=== PATIENT | male | born 1995 | race Caucasian/White ===

== ENCOUNTER 2017-11-08 05:46 | Observation (INO) | payer OTHER ==
[~2017-11-08] VITALS: Ht 188 cm; Wt 98.9 kg
[~2017-11-08 05:46] MED LIST: ALBU90OI INH; AZIT250 PO; PRED20 PO; QUET300 PO
[2017-11-08 06:12] LABS: BASOPHILS ABSOLUTE AUTO 0.03 K/mm3 (0.00-0.23); BASOPHILS PERCENT AUTO 0 % (0-2); EOSINOPHILS ABSOLUTE AUTO 0.13 K/mm3 (0.00-0.68); EOSINOPHILS PERCENT AUTO 2 % (0-6); Hematocrit 40.8 % (37.0-53.0); Hemoglobin 14.1 g/dL (13.5-17.5); IMMATURE GRAN ABSOLUTE AUTO 0.02 K/mm3 (0.00-0.10); IMMATURE GRAN PERCENT AUTO 0 % (0-1); LYMPHOCYTES ABSOLUTE AUTO 2.76 K/mm3 (0.84-5.20); LYMPHOCYTES PERCENT AUTO 35 % (21-46); MONOCYTES PERCENT AUTO 9 % (4-13); Mean Corpuscular HGB 30.3 pg (26.0-34.0); Mean Corpuscular HGB Conc 34.6 g/dL (31.5-36.5); Mean Corpuscular Volume 88 fL (80-100); Mean Platelet Volume 9.7 fL (9.1-12.4); NEUTROPHILS ABSOLUTE AUTO 4.28 K/mm3 (1.96-9.15); NEUTROPHILS PERCENT AUTO 54 % (41-73); Platelet Count 282 K/mm3 (150-400); RDW Coefficient Variation 12.5 % (11.7-14.2); RDW Standard Deviation 39.9 fL (35.1-46.3); Red Blood Cell Count 4.65 M/mm3 (4.30-5.90); White Blood Cell Count 7.92 K/mm3 (4.00-11.30)
[2017-11-08 06:39] LABS: Alanine Aminotransfer (ALT/SGP 25 U/L (12-78); Albumin, Blood 4.2 g/dL (3.4-5.0); Albumin/Globulin Ratio 1.2 (0.8-1.8); Alk Phos 67 U/L (50-136); Anion Gap 8 mmol/L (6-16); Aspartate Aminotrans (AST/SGOT 14 U/L (12-37); Bilirubin, Total 0.6 mg/dL (0.1-1.0); Blood Urea Nitrogen 11 mg/dL (8-24); Bun/Creatinine Ratio 12.8 (12.0-20.0); CO2, Blood 25 mmol/L (21-32); Calcium, Blood 8.6 mg/dL (8.5-10.1); Chloride, Blood 106 mmol/L (98-108); Creatinine, Blood 0.86 mg/dL (0.60-1.20); Ethanol (Alcohol), Blood, Med <3 mg/dL; Globulin, Blood 3.5 g/dL (2.2-4.0); Glomerular Filtration Rate >60 (60-); Glucose, Blood 89 mg/dL (70-99); Potassium, Blood 3.4 mmol/L (3.5-5.5); Salicylate <1.7 mg/dL (2.8-20.0); Sodium, Blood 139 mmol/L (136-145); Total Protein, Blood 7.7 g/dL (6.4-8.2)
[2017-11-08 06:50] LABS: Acetaminophen, Random <2.0 ug/mL (10.0-30.0)
[2017-11-09 11:47] LABS: Source, Urine Clean Catch
[2017-11-09 11:52] LABS: Bilirubin, Urine Neg (Neg); Blood, Urine Neg (Neg); Glucose Qualitative, Urine Neg (Neg); Ketones, Urine Neg (Neg); Leukocyte Esterase, Urine Neg (Neg); Nitrite, Urine Neg (Neg); Protein, Urine Neg (Neg); Urobilinogen, Urine NORM (Normal)
[2017-11-09 11:54] LABS: Appearance, Urine Clear (Clear); Color, Urine Yellow (P-Yellow)
[2017-11-09 12:12] LABS: U Amphetamine Screen Not Detected; U Barbituate Screen Not Detected; U Benzodiazapine Screen DETECTED; U Buprenorphine Screen Not Detected; U Cannabinoids Screen DETECTED; U Cocaine Screen Not Detected; U Methadone Screen Not Detected; U Methamphetamine Screen Not Detected; U Opiates Screen Not Detected; U Oxycodone Screen Not Detected; U Phencyclidine Screen Not Detected; U Propoxyphene Screen Not Detected
[2017-11-10 16:56] LABS: Free Thyroxine 0.96 ng/dL (0.70-1.60)
[2017-11-10 16:58] LABS: Triiodothyronine, Free 2.78 pg/mL (2.18-3.98)
== END 2017-11-12 08:29 ==
LOC: ER 05:46 → EOR 05:47
PROVIDERS: Emergency Medicine
DX: R45.851 Suicidal ideations (principal); F23 Brief psychotic disorder; J45.909 Unspecified asthma, uncomplicated; I49.9 Cardiac arrhythmia, unspecified; F32.3 Major depressive disorder, single episode, severe with psychotic features; F17.210 Nicotine dependence, cigarettes, uncomplicated; F12.90 Cannabis use, unspecified, uncomplicated; F15.11 Other stimulant abuse, in remission; Z79.899 Other long term (current) drug therapy
CPT/HCPCS: 36415; 80053; 81003; 84439; 84443; 84481; 85025; 93005; 93010; 96372; 99285; G0378; G0480; J1200; J1630; J2060

== ENCOUNTER 2017-11-28 11:48 | Emergency (ER) | payer OTHER ==
[~2017-11-28] VITALS: Ht 188 cm; Wt 98.4 kg
== END 2017-11-28 12:48 | disposition left against medical advice (07) ==
LOC: ER 11:48
DX: Z53.21 Procedure and treatment not carried out due to patient leaving prior to being seen by health care provider (principal)
CPT/HCPCS: 99282

== ENCOUNTER 2017-11-29 03:59 | Observation (INO) | payer OTHER ==
[~2017-11-29] VITALS: Ht 188 cm; Wt 98.4 kg
[2017-11-29 04:19] LABS: BASOPHILS ABSOLUTE AUTO 0.07 K/mm3 (0.00-0.23); BASOPHILS PERCENT AUTO 0 % (0-2); EOSINOPHILS ABSOLUTE AUTO 0.09 K/mm3 (0.00-0.68); EOSINOPHILS PERCENT AUTO 1 % (0-6); Hemoglobin 14.3 g/dL (13.5-17.5); IMMATURE GRAN ABSOLUTE AUTO 0.07 K/mm3 (0.00-0.10); IMMATURE GRAN PERCENT AUTO 0 % (0-1); LYMPHOCYTES ABSOLUTE AUTO 1.73 K/mm3 (0.84-5.20); LYMPHOCYTES PERCENT AUTO 11 % (21-46); MONOCYTES ABSOLUTE AUTO 1.44 K/mm3 (0.16-1.47); MONOCYTES PERCENT AUTO 9 % (4-13); Mean Corpuscular HGB 29.9 pg (26.0-34.0); Mean Corpuscular Volume 88 fL (80-100); Mean Platelet Volume 9.3 fL (9.1-12.4); NEUTROPHILS ABSOLUTE AUTO 13.05 K/mm3 (1.96-9.15); NEUTROPHILS PERCENT AUTO 79 % (41-73); Platelet Count 288 K/mm3 (150-400); RDW Coefficient Variation 11.9 % (11.7-14.2); RDW Standard Deviation 38.4 fL (35.1-46.3); Red Blood Cell Count 4.79 M/mm3 (4.30-5.90); White Blood Cell Count 16.45 K/mm3 (4.00-11.30)
[2017-11-29 04:42] LABS: Alanine Aminotransfer (ALT/SGP 25 U/L (12-78); Albumin, Blood 4.4 g/dL (3.4-5.0); Albumin/Globulin Ratio 1.2 (0.8-1.8); Alk Phos 69 U/L (50-136); Anion Gap 9 mmol/L (6-16); Aspartate Aminotrans (AST/SGOT 25 U/L (12-37); Blood Urea Nitrogen 14 mg/dL (8-24); Bun/Creatinine Ratio 16.5 (12.0-20.0); CO2, Blood 27 mmol/L (21-32); Calcium, Blood 8.8 mg/dL (8.5-10.1); Chloride, Blood 100 mmol/L (98-108); Creatinine, Blood 0.85 mg/dL (0.60-1.20); Ethanol (Alcohol), Blood, Med <3 mg/dL; Globulin, Blood 3.8 g/dL (2.2-4.0); Glomerular Filtration Rate >60 (60-); Glucose, Blood 95 mg/dL (70-99); Potassium, Blood 3.7 mmol/L (3.5-5.5); Salicylate <1.7 mg/dL (2.8-20.0); Sodium, Blood 136 mmol/L (136-145); Total Protein, Blood 8.2 g/dL (6.4-8.2)
[2017-11-29 04:53] LABS: Acetaminophen, Random <2.0 ug/mL (10.0-30.0)
[2017-11-29 17:24] LABS: Source, Urine Clean Catch
[2017-11-29 17:39] LABS: Appearance, Urine Clear (Clear); Bilirubin, Urine Neg (Neg); Blood, Urine Neg (Neg); Color, Urine Yellow (P-Yellow); Glucose Qualitative, Urine Neg (Neg); Ketones, Urine 2+ (Neg); Leukocyte Esterase, Urine Neg (Neg); Nitrite, Urine Neg (Neg); Protein, Urine Neg (Neg); Urobilinogen, Urine NORM (Normal)
[2017-11-29 18:12] LABS: U Amphetamine Screen Not Detected; U Barbituate Screen Not Detected; U Benzodiazapine Screen DETECTED; U Buprenorphine Screen Not Detected; U Cannabinoids Screen DETECTED; U Cocaine Screen Not Detected; U Methadone Screen Not Detected; U Methamphetamine Screen Not Detected; U Opiates Screen Not Detected; U Oxycodone Screen Not Detected; U Phencyclidine Screen Not Detected; U Propoxyphene Screen Not Detected
== END 2017-11-29 17:58 | disposition home or self-care (01) ==
LOC: ER 03:59 → EOR 04:00
PROVIDERS: Emergency Medicine
DX: R45.851 Suicidal ideations (principal); F22 Delusional disorders; F32.9 Major depressive disorder, single episode, unspecified; J45.909 Unspecified asthma, uncomplicated; R45.1 Restlessness and agitation; Z79.899 Other long term (current) drug therapy
CPT/HCPCS: 36415; 80053; 81003; 84443; 85025; 99285; G0378; G0480

== ENCOUNTER 2019-05-05 11:27 | Emergency (ER) | payer OTHER ==
[~2019-05-05] VITALS: Ht 188 cm; Wt 90.7 kg
[~2019-05-05 11:27] MED LIST changes: +ACET325 PO; +Amoxicillin500 MG PO; +BENZ2 PO; +CHLO100 PO; +HALO5 PO; +Haloperidol5 MG PO; +LEVSOD150 PO; +LORA2 PO; +[UNRECOGNIZED DRUG - OTHER]
[2019-05-05] MEDS ORDERED: Synthroid150 MCG PO (11:57)
[2019-05-05] MEDS ORDERED: Benztropine Mesy1 MG PO (11:57)
[2019-05-05] MEDS ORDERED: Haldol 5 mg Tab5 MG PO (11:57)
[2019-05-05] MEDS ORDERED: CHLO100 PO (11:57)
[2019-05-05] MEDS ORDERED: LORA2 PO (13:50)
[2019-05-05] MEDS ORDERED: LORA1 PO (13:53)
== END 2019-05-05 12:03 | disposition home or self-care (01) ==
LOC: ER 11:27
DX: Z76.0 Encounter for issue of repeat prescription (principal); Z79.899 Other long term (current) drug therapy; J45.909 Unspecified asthma, uncomplicated; F17.210 Nicotine dependence, cigarettes, uncomplicated
CPT/HCPCS: 99281

== ENCOUNTER 2019-07-26 10:46 | Emergency (ER) | payer OTHER ==
[~2019-07-26] VITALS: Ht 185.4 cm; Wt 96.6 kg
[~2019-07-26 10:46] MED LIST changes: +Benztropine Mesy1 MG PO; +Haldol 5 mg Tab5 MG PO; +LORA1 PO; +Synthroid150 MCG PO
[2019-07-26] MEDS ORDERED: SYNTHROID150 MC1 PO (12:06)
== END 2019-07-26 12:10 | disposition home or self-care (01) ==
LOC: ER 10:46
DX: Z76.0 Encounter for issue of repeat prescription (principal); Z79.899 Other long term (current) drug therapy; F20.9 Schizophrenia, unspecified; J45.909 Unspecified asthma, uncomplicated; F31.9 Bipolar disorder, unspecified; F17.210 Nicotine dependence, cigarettes, uncomplicated
CPT/HCPCS: 99281

== ENCOUNTER → 2019-10-21 | Outpatient (CLI) | payer OTHER ==
[~2019-10-21] MED LIST changes: +SYNTHROID150 MC1 PO
[2019-10-21 19:15] LABS: U Amphetamine Screen Not Detected; U Barbituate Screen Not Detected; U Benzodiazapine Screen DETECTED; U Buprenorphine Screen Not Detected; U Cannabinoids Screen Not Detected; U Cocaine Screen Not Detected; U Methadone Screen Not Detected; U Methamphetamine Screen Not Detected; U Opiates Screen Not Detected; U Oxycodone Screen Not Detected; U Phencyclidine Screen Not Detected; U Propoxyphene Screen Not Detected
== END | disposition home or self-care (01) ==
LOC: LAB SHORT 17:02 → LAB 17:02
PROVIDERS: Registered Nurse Psychiatric/Mental Health
DX: Z51.81 Encounter for therapeutic drug level monitoring (principal); Z79.899 Other long term (current) drug therapy

== ENCOUNTER 2020-09-14 12:36 | Inpatient (IN) | payer OTHER ==
[~2020-09-14] VITALS: Ht 185.4 cm; Wt 92.8 kg
[~2020-09-14 12:36] MED LIST changes: +Veetids 500500 MG PO
[2020-09-14 16:08] LABS: BASOPHILS ABSOLUTE AUTO 0.01 K/mm3 (0.00-0.23); BASOPHILS PERCENT AUTO 0 % (0-2); EOSINOPHILS ABSOLUTE AUTO 0.01 K/mm3 (0.00-0.68); EOSINOPHILS PERCENT AUTO 0 % (0-6); Hematocrit 34.4 % (37.0-53.0); IMMATURE GRAN ABSOLUTE AUTO 0.06 K/mm3 (0.00-0.10); IMMATURE GRAN PERCENT AUTO 1 % (0-1); LYMPHOCYTES ABSOLUTE AUTO 0.64 K/mm3 (0.84-5.20); LYMPHOCYTES PERCENT AUTO 12 % (21-46); MONOCYTES ABSOLUTE AUTO 0.31 K/mm3 (0.16-1.47); MONOCYTES PERCENT AUTO 6 % (4-13); Mean Corpuscular HGB 27.6 pg (26.0-34.0); Mean Corpuscular Volume 86 fL (80-100); Mean Platelet Volume 10.3 fL (9.1-12.4); NEUTROPHILS ABSOLUTE AUTO 4.31 K/mm3 (1.96-9.15); NEUTROPHILS PERCENT AUTO 81 % (41-73); Platelet Count 317 K/mm3 (150-400); RDW Coefficient Variation 11.6 % (11.7-14.2); RDW Standard Deviation 36.8 fL (35.1-46.3); Red Blood Cell Count 3.99 M/mm3 (4.30-5.90); White Blood Cell Count 5.34 K/mm3 (4.00-11.30)
[2020-09-14 16:25] LABS: Alanine Aminotransfer (ALT/SGP 21 U/L (12-78); Albumin, Blood 2.8 g/dL (3.4-5.0); Albumin/Globulin Ratio 0.8 (0.8-1.8); Alk Phos 35 U/L (50-136); Anion Gap 6 mmol/L (6-16); Aspartate Aminotrans (AST/SGOT 26 U/L (12-37); Bilirubin, Total 0.7 mg/dL (0.1-1.0); Blood Urea Nitrogen 6 mg/dL (8-24); CO2, Blood 26 mmol/L (21-32); Calcium, Blood 8.1 mg/dL (8.5-10.1); Chloride, Blood 107 mmol/L (98-108); Creatinine, Blood 0.66 mg/dL (0.60-1.20); Globulin, Blood 3.7 g/dL (2.2-4.0); Glomerular Filtration Rate >60 (60-); Glucose, Blood 95 mg/dL (70-99); Potassium, Blood 4.1 mmol/L (3.5-5.5); Sodium, Blood 139 mmol/L (136-145); Total Protein, Blood 6.5 g/dL (6.4-8.2)
[2020-09-14 17:08] LABS: International Normalized Ratio 1.11; Prothrombin Time Results 11.8 Sec (9.7-11.5)
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
[2020-09-15 00:31] LABS: BASOPHILS ABSOLUTE AUTO 0.01 K/mm3 (0.00-0.23); BASOPHILS PERCENT AUTO 0 % (0-2); EOSINOPHILS ABSOLUTE AUTO 0.01 K/mm3 (0.00-0.68); EOSINOPHILS PERCENT AUTO 0 % (0-6); Hematocrit 32.9 % (37.0-53.0); Hemoglobin 10.6 g/dL (13.5-17.5); IMMATURE GRAN ABSOLUTE AUTO 0.06 K/mm3 (0.00-0.10); IMMATURE GRAN PERCENT AUTO 2 % (0-1); LYMPHOCYTES ABSOLUTE AUTO 0.97 K/mm3 (0.84-5.20); LYMPHOCYTES PERCENT AUTO 24 % (21-46); MONOCYTES ABSOLUTE AUTO 0.29 K/mm3 (0.16-1.47); MONOCYTES PERCENT AUTO 7 % (4-13); Mean Corpuscular HGB 27.5 pg (26.0-34.0); Mean Corpuscular HGB Conc 32.2 g/dL (31.5-36.5); Mean Corpuscular Volume 85 fL (80-100); Mean Platelet Volume 9.5 fL (9.1-12.4); NEUTROPHILS ABSOLUTE AUTO 2.75 K/mm3 (1.96-9.15); NEUTROPHILS PERCENT AUTO 67 % (41-73); Platelet Count 311 K/mm3 (150-400); RDW Coefficient Variation 11.5 % (11.7-14.2); Red Blood Cell Count 3.86 M/mm3 (4.30-5.90); White Blood Cell Count 4.09 K/mm3 (4.00-11.30)
[2020-09-15 00:49] LABS: Anion Gap 7 mmol/L (6-16); Blood Urea Nitrogen 7 mg/dL (8-24); Bun/Creatinine Ratio 10.7 (12.0-20.0); CO2, Blood 27 mmol/L (21-32); Calcium, Blood 8.1 mg/dL (8.5-10.1); Chloride, Blood 106 mmol/L (98-108); Creatinine, Blood 0.65 mg/dL (0.60-1.20); Glomerular Filtration Rate >60 (60-); Glucose, Blood 99 mg/dL (70-99); International Normalized Ratio 1.12; Potassium, Blood 3.5 mmol/L (3.5-5.5); Prothrombin Time Results 11.9 Sec (9.7-11.5); Sodium, Blood 140 mmol/L (136-145)
--- NOTE | 2020-09-15 06:41 | NUR ---
SHIFT SUMMARY PT CONTINUES TO BE PCU STATUS, 2 MD HOLD. A&O X4 W/ PARANOIA. PT VSS. SPO2 > 92% ON RA. MONITOR SHOWING SR-ST HR 80's-110. RLE EXTENSIVELY HOT & SWOLLEN. HEPARIN GTT INFUSING PER EMAR. WILL CONTINUE TO MONITOR & PROVIDE CARE UNTIL REPORT OFF TO DAY SHIFT RN.
--- NOTE | 2020-09-15 07:51 | NUR ---
AM NOTE... ASSUMED CARE OF PT APROX 0700, PT IS A&Ox4. PT WAS ADMITTED WITH DVT TO HIS RLE AND PE'S FOUND ON CT SCAN. PT'S VS STABLE AT THIS TIME. PT IS ON RA WITH O2 SATS>92%. L/S CLEAR T/O. BT PRESENT AND NORMOACTIVE, ABD IS SOFT AND NONTENDER TO PALP. RLE HAS 2+ PITTING EDEMA FROM UPPER THIGH TO HIS FOOT. PULSES FAINT BUT PALPABLE. PT HAS HEPARIN GTT RUNNING PER ORDERS. PT HAS BEEN PARANOID BUT COOPERATIVE WITH CARE. CALL LIGHT IN REACH WILL CONTINUE TO MONITOR.
[2020-09-15 08:10] LABS: U Amphetamine Screen Not Detected; U Barbituate Screen Not Detected; U Benzodiazapine Screen Not Detected; U Buprenorphine Screen Not Detected; U Cannabinoids Screen Not Detected; U Cocaine Screen Not Detected; U Methadone Screen Not Detected; U Methamphetamine Screen Not Detected; U Opiates Screen Not Detected; U Oxycodone Screen Not Detected; U Phencyclidine Screen Not Detected; U Propoxyphene Screen Not Detected
--- NOTE | 2020-09-15 17:45 | NUR ---
SHIFT SUMMARY... NO ACUTE NEGATIVE CHANGES NOTED THIS SHIFT. PT'S VS HAVE BEEN STABLE T/O SHIFT. PT HAS BEEN USING THE URINAL TO VOID WITHOUT ISSUE. PT HAS NOT HAD A BM THIS SHIFT, PER PT HE HAS NOT HAD ONE FOR 3 DAYS. PROVIDER IS AWARE AND ORDERS OBTAINED FOR BOWEL CARE. PT DENIES ANY CHEST PAIN/PRESSURE OR INCREASED SOB. PT HAS OCC LOOSE NONPRODUCTIVE COUGH. COVID TEST IS NEGATIVE ON ADMIT. SWELLING HAS IMPROVED ON HIS RLE, PULSES STILL PALPABLE. PT WAS MEDICATED FOR PAIN PER EMAR WITH GOOD RESULTS. HEPARIN GTT RUNNING PER ORDERS AT 17UNITS/KG/HR. CALL LIGHT IN REACH WILL CONTINUE TO MONITOR UNTIL REPORT IS GIVEN TO ONCOMING RN.
--- NOTE | 2020-09-15 19:30 | NUR ---
ASSUMED CARE PT A&O X3; VSS; SINUS TACH NOTED ON MONITOR W/ HR 101; DENIES CHEST PAIN; I2 SATS >93 ON RA; NON PRODUCTIVE COUGH NOTED; PARANOID BUT COMPLIANT W/ CARE; PT CALMLY WATCHING TV; CALL LIGHT IN REACH; BED IN LOWEST POSITION.
--- NOTE | 2020-09-15 21:26 | NUR ---
REMOTE MONITORING CALLED AND VERIFICATION OF CAMERA ON IN ROOM AND PT MONITORED.
[2020-09-16 03:49] LABS: Hemoglobin 10.4 g/dL (13.5-17.5); Mean Corpuscular HGB 27.2 pg (26.0-34.0); Mean Corpuscular HGB Conc 31.5 g/dL (31.5-36.5); Mean Corpuscular Volume 86 fL (80-100); Mean Platelet Volume 9.7 fL (9.1-12.4); Platelet Count 335 K/mm3 (150-400); RDW Coefficient Variation 11.8 % (11.7-14.2); RDW Standard Deviation 36.9 fL (35.1-46.3); Red Blood Cell Count 3.83 M/mm3 (4.30-5.90); White Blood Cell Count 4.57 K/mm3 (4.00-11.30)
[2020-09-16 04:10] LABS: Albumin, Blood 2.5 g/dL (3.4-5.0); Anion Gap 3 mmol/L (6-16); Blood Urea Nitrogen 6 mg/dL (8-24); Bun/Creatinine Ratio 8.8 (12.0-20.0); CO2, Blood 30 mmol/L (21-32); Calcium, Blood 8.1 mg/dL (8.5-10.1); Chloride, Blood 107 mmol/L (98-108); Creatinine, Blood 0.68 mg/dL (0.60-1.20); Glomerular Filtration Rate >60 (60-); Glucose, Blood 101 mg/dL (70-99); Phosphorus, Blood 3.8 mg/dL (2.5-4.9); Potassium, Blood 3.8 mmol/L (3.5-5.5); Sodium, Blood 140 mmol/L (136-145)
--- NOTE | 2020-09-16 04:48 | NUR ---
SHIFT SUMMARY PT A&O TO SELF; SEEMS PARANOID; BECOMES AGGITATED AT TIMES; VSS; DENIES CHEST PAIN; SINUS TACH NOTED ON MONITOR; O2 SATS >94 ON RA; HEP GTT INCREASED TO 18 U/KG/HR PER PHARMACY; DUCOSATE AND SENOKOT ADMINISTERED PER EMAR; PT STATES HE HAS NOT HAD A BM FOR 3+ DAYS; PT USES URINAL IN BED W/ NO DIFFICULTY; NO DISTRESS NOTED T/O SHIFT; PT SLEPT A FEW HOURS; CALL LIGHT IN REACH; BED IN LOWEST POSITION; WILL CONTINUE TO MONITOR CLOSELY UNTIL HAND OFF TO DAY SHIFT RN.
--- NOTE | 2020-09-16 07:16 | NUR ---
ASSUMED CARE: PT RESTING IN BED AT THIS TIME. VERIFIED HEPARIN DOSING. NO ACUTE NEEDS OR CONCERNS. CURRENTLY NSR AT 98.
--- NOTE | 2020-09-16 11:46 | NUR ---
PT TO BE MOVED TO ROOM 16. REMOTE MONITORING STAFF AWARE. CREDIT RISK REVIEW OFFICER TAKING PT TO SHOWER AT THIS TIME.
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
--- NOTE | 2020-09-16 20:00 | NUR ---
RECEIVING NOTE RECEIVED HAND OFF FROM Aravind DORADO RN USING SBAR. LYING IN LOW FOWLERS WITH EYES OPEN. AAO X3, SNOW, FOLLOWS ALL COMMANDS. REORIENTED TO ROOM, CALL SYSTEM, AND POC, VOICES UNDERSTANDING. UNCOOPERATIVE WITH ASSESSMENT AT FIRST, BUT AFTER BEING REASSURED THAT HE IS PART OF THE CARE TEAM HE BECAME MUCH MORE COOPERATIVE. NURSING OUTLINED HOW CARE WOULD GO AND ASKED IF HE HAD ANY FURTHER NEEDS, HE DENIES ANY AT THIS TIME. RESPIRATIONS EVEN AND UNLABORED ON ROOM AIR. LUNG SOUNDS COARSE BILATERALLY. PRODUCTIVE, HARSH COUGH NOTED, SPITS UP BLOODY MUCUS INTO TISSUES. CONTINENT OF BOWEL AND BLADDER, VOIDS PER URINAL. C/O ZAPATA, LUNG PAIN, AND BLE PAIN AT 7/10. MEDICATED FOR PAIN PER EMAR. DENIES DISCOMFORT, FURTHER NEEDS, OR WANTS AT THIS TIME. SHIFT ASSESSMENT IN PROGRESS. SAFETY MEASURES IN PLACE. WILL CONTINUE TO MONITOR.
--- NOTE | 2020-09-17 03:26 | NUR ---
CEREAL TIME NOTED TO BE CALLING OUT WANTING TO KNOW IF IT WAS CEREAL TIME. WHEN ASKED WHY HE WAS NOT USING HIS CALL CHAMBERS, HE STATED THAT HE WOKE UP AND WAS HUNGRY AND THIRSTY. NURSING PROVIDED APPLE JUICE, BUT INSTRUCTED PT THAT BREASKFAST WILL BE SERVED AT 0800. AREA CLEANED AND PT DENIED FURTHER NEEDS OR WANTS AT THIS TIME. SAFETY MEASURES IN PLACE. WILL CONTINUE TO MONITOR.
--- NOTE | 2020-09-17 05:12 | NUR ---
BM STATED THAT HE NEEDED TO HAVE BM. STANDBY ASSIST TO COMMODE. INSTRUCTED TO PULL CORD FOR ASSISTANCE BACK TO BED WHEN DONE, VOICES UNDERSTANDING. WILL CONTINUE TO MONITOR.
--- NOTE | 2020-09-17 05:18 | NUR ---
SHIFT SUMMARY LYING IN SEMI FOWLERS AFTER HAVING MEDIUM BROWN BM. HAS RESETED OFF AND ON. HAS BEEN PLEASANT AND COOPERATIVE WITH CARE. GIVEN APPLE JUICE AND SNACKS PER REQUEST THROUGHOUT SHIFT. RESPIRATIONS CONTINUE TO BE EVEN AND UNLABORED. PRODUCTIVE COUGH NOTED. STATES THAT IT IS PRODUCTIVE AND IS BLOOD TINGED MUCUS. USES TISSUES WHEN COUGHING. NO PIV AT THIS TIME. CONTINENT OF BOWEL AND BLADDER. GOOD URINARY OUTPUT NOTED. STATES THAT HE FEELS BETTER, THAT HIS LEG FEELS BETTER. C/O PAIN ONLY WHEN AMBULATING TO COMMODE. DENIES PAIN AFTER RETURNING TO BED. DENIES FURTHER NEEDS OR WANTS AT THIS TIME. SAFETY MEAURES IN PLACE. WILL CONTINUE TO MONITOR AND GIVE HAND OFF TO ONCOMING SHIFT USING SBAR.
--- NOTE | 2020-09-17 07:56 | NUR ---
ASSUMED CARE: RECEIVED REPORT FROM MORENA RN. VSS AT THIS TIME. PT RECEIVING BREAKFAST TRAY AT THIS TIME. WILL CONTINUE TO MONIOTOR AND ASSESS FURTHER.
[2020-09-17] MEDS ORDERED: ACET325 PO (11:29)
[2020-09-17] MEDS ORDERED: XARELTO20 MG PO (11:30)
[2020-09-22 18:11] LABS: ACT. PRT C RESIST W/FV DEFIC. 2.7 ratio (.); APTT 44.1 sec (.); APTT 1:1 NP 34.7 sec (.); APTT 1:1 SALINE 49.5 sec (.); DRVVT CONFIRM SECONDS 41.2 sec (.); DRVVT RATIO 2.5 ratio (.); DRVVT SCREEN SECONDS 116.1 sec (.); FACTOR VIII ACTIVITY 182 % (.); HEXAGONAL PHOSPHOLIPID NEUTRAL 31 sec (.); HOMOCYSTEINE 9.2 umol/L (.); PRT C ACTIVITY (CHROMOGENIC) 79 % (.)
== END 2020-09-17 12:00 | disposition home or self-care (01) | DRG 299 ==
LOC: ER 12:36 → ICUW 12:38
PROVIDERS: Emergency Medicine; Internal Medicine; ADMIT Family Medicine
DX: I82.411 Acute embolism and thrombosis of right femoral vein (principal); I26.99 Other pulmonary embolism without acute cor pulmonale; I82.431 Acute embolism and thrombosis of right popliteal vein; I82.441 Acute embolism and thrombosis of right tibial vein; F17.210 Nicotine dependence, cigarettes, uncomplicated; F31.9 Bipolar disorder, unspecified; Z20.828 Contact with and (suspected) exposure to other viral communicable diseases; F25.1 Schizoaffective disorder, depressive type
CPT/HCPCS: 36415; 71045; 71260; 80048; 80053; 80069; 81240; 83090; 83880; 84484; 85025; 85027; 85240; 85300; 85303; 85306; 85307; 85610; 85613; 85730; 85732; 86146; 86147; 93971; 96365; 96366; 96376; 99285-25; A9270; G0378; J1644; Q9967; U0004

== ENCOUNTER 2020-12-04 16:33 | Emergency (ER) | payer OTHER ==
[~2020-12-04] VITALS: Ht 182.9 cm; Wt 77.1 kg
[~2020-12-04 16:33] MED LIST changes: +XARELTO20 MG PO
== END 2020-12-04 19:13 | disposition left against medical advice (07) ==
LOC: ER 16:33
DX: Z02.89 Encounter for other administrative examinations (principal); Z53.21 Procedure and treatment not carried out due to patient leaving prior to being seen by health care provider; Z91.14 Patient's other noncompliance with medication regimen
CPT/HCPCS: 99282

== ENCOUNTER 2021-09-05 01:53 | Emergency (ER) | payer OTHER ==
[~2021-09-05] VITALS: Ht 177.8 cm; Wt 83.9 kg
== END 2021-09-05 03:07 | disposition home or self-care (01) ==
LOC: ER 01:53
DX: F15.10 Other stimulant abuse, uncomplicated (principal); R45.1 Restlessness and agitation
CPT/HCPCS: 99282

== ENCOUNTER 2024-03-08 16:29 | Observation (INO) | payer OTHER ==
[~2024-03-08] VITALS: Ht 190.5 cm; Wt 68.0 kg
[2024-03-08 17:13] LABS: BASOPHILS ABSOLUTE AUTO 0.06 K/mm3 (0.00-0.23); BASOPHILS PERCENT AUTO 1 % (0-2); EOSINOPHILS ABSOLUTE AUTO 0.15 K/mm3 (0.00-0.68); EOSINOPHILS PERCENT AUTO 2 % (0-6); Hematocrit 37.2 % (37.0-53.0); Hemoglobin 12.7 g/dL (13.5-17.5); IMMATURE GRAN ABSOLUTE AUTO 0.01 K/mm3 (0.00-0.10); IMMATURE GRAN PERCENT AUTO 0 % (0-1); LYMPHOCYTES ABSOLUTE AUTO 1.55 K/mm3 (0.84-5.20); LYMPHOCYTES PERCENT AUTO 20 % (21-46); MONOCYTES ABSOLUTE AUTO 0.82 K/mm3 (0.16-1.47); MONOCYTES PERCENT AUTO 11 % (4-13); Mean Corpuscular HGB 31.1 pg (26.0-34.0); Mean Corpuscular HGB Conc 34.1 g/dL (31.5-36.5); Mean Corpuscular Volume 91 fL (80-100); Mean Platelet Volume 10.2 fL (9.1-12.4); NEUTROPHILS ABSOLUTE AUTO 5.09 K/mm3 (1.96-9.15); NEUTROPHILS PERCENT AUTO 66 % (41-73); Platelet Count 220 K/mm3 (150-400); RDW Coefficient Variation 12.6 % (11.7-14.2); RDW Standard Deviation 41.3 fL (35.1-46.3); Red Blood Cell Count 4.09 M/mm3 (4.30-5.90); White Blood Cell Count 7.68 K/mm3 (4.00-11.30)
[2024-03-08 17:41] LABS: Alanine Aminotransfer (ALT/SGP 29 U/L (12-78); Albumin, Blood 3.7 g/dL (3.4-5.0); Albumin/Globulin Ratio 1.1 (0.8-1.8); Alk Phos 69 U/L (50-136); Anion Gap 8 mmol/L (3-11); Aspartate Aminotrans (AST/SGOT 81 U/L (12-37); Bilirubin, Total 0.5 mg/dL (0.1-1.0); Blood Urea Nitrogen 13 mg/dL (8-24); Bun/Creatinine Ratio 16.4 (12.0-20.0); CO2, Blood 25 mmol/L (21-32); Calcium, Blood 8.5 mg/dL (8.5-10.1); Chloride, Blood 110 mmol/L (98-108); Ethanol (Alcohol), Blood, Med <3 mg/dL; Globulin, Blood 3.5 g/dL (2.2-4.0); Glomerular Filtration Rate 122 (60-); Glucose, Blood 114 mg/dL (70-99); Potassium, Blood 4.2 mmol/L (3.5-5.5); Salicylate <1.7 mg/dL (2.8-20.0); Sodium, Blood 139 mmol/L (136-145); Total Protein, Blood 7.2 g/dL (6.4-8.2)
[2024-03-08 17:42] LABS: Acetaminophen, Random <2.0 ug/mL (10.0-30.0)
[2024-03-08 19:32] LABS: Influenza A, PCR NEGATIVE (NEGATIVE); Influenza B, PCR NEGATIVE (NEGATIVE); Resp Syncytial Virus, PCR NEGATIVE (NEGATIVE); SARS-Cov-2 (COVID-19) PCR, MMC NEGATIVE (NEGATIVE)
[2024-03-09] MEDS ORDERED: LORazepam 1 MG Tab PO ONE (08:15)
[2024-03-09 08:28] VITALS: BP 116/72
== END 2024-03-09 14:05 | disposition home or self-care (01) ==
LOC: ER 16:29 → EOR 16:30
PROVIDERS: Nurse Practitioner; ADMIT Emergency Medicine
DX: F25.0 Schizoaffective disorder, bipolar type (principal); R45.851 Suicidal ideations; Z59.00 Homelessness unspecified
CPT/HCPCS: 0241U; 80053; 85025; 86592; 93005; 93010; 99285-25; A9270; G0378; G0480

== ENCOUNTER 2024-08-05 12:54 | Emergency (ER) | payer OTHER ==
[~2024-08-05] VITALS: Ht 188 cm; Wt 68.0 kg
[2024-08-05 13:08] VITALS: BP 128/90
[2024-08-05] MEDS ORDERED: Haloperidol 5 MG Tab PO ONE (13:20)
[2024-08-05] MEDS ORDERED: HALO5 PO (13:22)
== END 2024-08-05 13:25 | disposition home or self-care (01) ==
LOC: ER 12:54
DX: F32.2 Major depressive disorder, single episode, severe without psychotic features (principal); Z76.0 Encounter for issue of repeat prescription; E03.9 Hypothyroidism, unspecified; J45.909 Unspecified asthma, uncomplicated; F17.210 Nicotine dependence, cigarettes, uncomplicated; Z86.59 Personal history of other mental and behavioral disorders
CPT/HCPCS: 99281; A9270

== ENCOUNTER 2024-08-19 09:02 | Observation (INO) | payer OTHER ==
[~2024-08-19] VITALS: Ht 182.9 cm; Wt 81.7 kg
[2024-08-19 11:19] LABS: BASOPHILS ABSOLUTE AUTO 0.02 K/mm3 (0.00-0.23); BASOPHILS PERCENT AUTO 0 % (0-2); EOSINOPHILS ABSOLUTE AUTO 0.14 K/mm3 (0.00-0.68); EOSINOPHILS PERCENT AUTO 2 % (0-6); Hematocrit 34.7 % (37.0-53.0); Hemoglobin 11.9 g/dL (13.5-17.5); IMMATURE GRAN ABSOLUTE AUTO 0.01 K/mm3 (0.00-0.10); IMMATURE GRAN PERCENT AUTO 0 % (0-1); LYMPHOCYTES ABSOLUTE AUTO 1.51 K/mm3 (0.84-5.20); LYMPHOCYTES PERCENT AUTO 25 % (21-46); MONOCYTES ABSOLUTE AUTO 0.52 K/mm3 (0.16-1.47); MONOCYTES PERCENT AUTO 9 % (4-13); Mean Corpuscular HGB 31.7 pg (26.0-34.0); Mean Corpuscular HGB Conc 34.3 g/dL (31.5-36.5); Mean Corpuscular Volume 93 fL (80-100); Mean Platelet Volume 9.5 fL (9.1-12.4); NEUTROPHILS ABSOLUTE AUTO 3.85 K/mm3 (1.96-9.15); NEUTROPHILS PERCENT AUTO 64 % (41-73); Platelet Count 253 K/mm3 (150-400); RDW Coefficient Variation 13.4 % (11.7-14.2); RDW Standard Deviation 44.5 fL (35.1-46.3); Red Blood Cell Count 3.75 M/mm3 (4.30-5.90); White Blood Cell Count 6.05 K/mm3 (4.00-11.30)
[2024-08-19] MEDS ORDERED: ELIQUIS2.5 M1 PO (11:31)
[2024-08-19] MEDS ORDERED: EUTHYROX50 MC1 PO (11:31)
[2024-08-19] MEDS ORDERED: BENZTROPINE MESY1 M6 PO (11:31)
[2024-08-19] MEDS ORDERED: ZOLOFT25 MG PO (11:31)
[2024-08-19 11:38] LABS: Ethanol (Alcohol), Blood, Med <3 mg/dL; Salicylate 3.6 mg/dL (2.8-20.0)
[2024-08-19 11:42] LABS: Acetaminophen, Random <2.0 ug/mL (10.0-30.0); Alanine Aminotransfer (ALT/SGP 14 U/L (12-78); Albumin, Blood 3.6 g/dL (3.4-5.0); Albumin/Globulin Ratio 1.1 (0.8-1.8); Alk Phos 52 U/L (50-136); Anion Gap 7 mmol/L (3-11); Aspartate Aminotrans (AST/SGOT 14 U/L (12-37); Bilirubin, Total 0.4 mg/dL (0.1-1.0); Blood Urea Nitrogen 12 mg/dL (8-24); CO2, Blood 27 mmol/L (21-32); Calcium, Blood 8.4 mg/dL (8.5-10.1); Chloride, Blood 113 mmol/L (98-108); Creatinine, Blood 0.92 mg/dL (0.60-1.20); Globulin, Blood 3.2 g/dL (2.2-4.0); Glomerular Filtration Rate 115 (60-); Glucose, Blood 99 mg/dL (70-99); Potassium, Blood 3.6 mmol/L (3.5-5.5); Sodium, Blood 143 mmol/L (136-145); Total Protein, Blood 6.8 g/dL (6.4-8.2)
[2024-08-19 15:02] LABS: U Amphetamine Screen DETECTED; U Barbituate Screen Not Detected; U Benzodiazapine Screen Not Detected; U Buprenorphine Screen Not Detected; U Cannabinoids Screen DETECTED; U Cocaine Screen Not Detected; U Methadone Screen Not Detected; U Methamphetamine Screen DETECTED; U Opiates Screen Not Detected; U Oxycodone Screen Not Detected; U Phencyclidine Screen Not Detected
[2024-08-20 07:21] VITALS: BP 115/58
== END 2024-08-20 10:24 | disposition home or self-care (01) ==
LOC: ER 09:02 → EOR 09:03 → UNDODEPER 08-20 10:24
PROVIDERS: ADMIT Student in an Organized Health Care Education/Training Program
DX: F25.0 Schizoaffective disorder, bipolar type (principal); R45.851 Suicidal ideations; J45.909 Unspecified asthma, uncomplicated; E03.9 Hypothyroidism, unspecified; F17.210 Nicotine dependence, cigarettes, uncomplicated; F11.20 Opioid dependence, uncomplicated; F15.10 Other stimulant abuse, uncomplicated; Z79.899 Other long term (current) drug therapy
CPT/HCPCS: 80053; 80320; 85025; 93005; 93010; 99285-25; G0378; G0480

== ENCOUNTER 2024-09-21 14:40 | Emergency (ER) | payer OTHER ==
[~2024-09-21] VITALS: Ht 182.9 cm; Wt 81.7 kg
[~2024-09-21 14:40] MED LIST changes: +BENZTROPINE MESY1 M6 PO; +ELIQUIS2.5 M1 PO; +EUTHYROX50 MC1 PO; +ZOLOFT25 MG PO
[2024-09-21] MEDS ORDERED: Ondansetron HCl 2 MG / ML 2ML Vial IV ONE (15:50)
[2024-09-21] MEDS ORDERED: NS 1,000 ML IV SCH (15:50)
[2024-09-21 16:29] LABS: Albumin, Blood 4.6 g/dL (3.4-5.0); Albumin/Globulin Ratio 1.2 (0.8-1.8); Bilirubin, Total 0.6 mg/dL (0.1-1.0); Bun/Creatinine Ratio 21.9 (12.0-20.0); Calcium, Blood 9.5 mg/dL (8.5-10.1); Creatinine, Blood 0.91 mg/dL (0.60-1.20); Globulin, Blood 3.7 g/dL (2.2-4.0); Potassium, Blood 4.2 mmol/L (3.5-5.5); Total Protein, Blood 8.3 g/dL (6.4-8.2)
[2024-09-21 17:08] LABS: BASOPHILS ABSOLUTE AUTO 0.04 K/mm3 (0.00-0.23); BASOPHILS PERCENT AUTO 0 % (0-2); EOSINOPHILS ABSOLUTE AUTO 0.05 K/mm3 (0.00-0.68); EOSINOPHILS PERCENT AUTO 1 % (0-6); Hematocrit 38.5 % (37.0-53.0); Hemoglobin 12.9 g/dL (13.5-17.5); IMMATURE GRAN ABSOLUTE AUTO 0.02 K/mm3 (0.00-0.10); IMMATURE GRAN PERCENT AUTO 0 % (0-1); LYMPHOCYTES ABSOLUTE AUTO 1.91 K/mm3 (0.84-5.20); LYMPHOCYTES PERCENT AUTO 21 % (21-46); MONOCYTES ABSOLUTE AUTO 0.65 K/mm3 (0.16-1.47); MONOCYTES PERCENT AUTO 7 % (4-13); Mean Corpuscular HGB 31.7 pg (26.0-34.0); Mean Corpuscular HGB Conc 33.5 g/dL (31.5-36.5); Mean Corpuscular Volume 95 fL (80-100); Mean Platelet Volume 9.8 fL (9.1-12.4); NEUTROPHILS ABSOLUTE AUTO 6.43 K/mm3 (1.96-9.15); NEUTROPHILS PERCENT AUTO 71 % (41-73); Platelet Count 265 K/mm3 (150-400); RDW Coefficient Variation 13.2 % (11.7-14.2); Red Blood Cell Count 4.07 M/mm3 (4.30-5.90)
[2024-09-21 17:23] LABS: International Normalized Ratio 1.02; Prothrombin Time Results 10.9 Sec (9.7-11.5)
[2024-09-21 19:53] LABS: Albumin, Blood 3.6 g/dL (3.4-5.0); Albumin/Globulin Ratio 1.2 (0.8-1.8); Bilirubin, Total 0.5 mg/dL (0.1-1.0); Bun/Creatinine Ratio 21.3 (12.0-20.0); Calcium, Blood 8.4 mg/dL (8.5-10.1); Creatinine, Blood 0.8 mg/dL (0.60-1.20); Globulin, Blood 2.9 g/dL (2.2-4.0); Potassium, Blood 3.4 mmol/L (3.5-5.5); Total Protein, Blood 6.5 g/dL (6.4-8.2)
[2024-09-21 21:07] LABS: Appearance, Urine Clear (Clear); Bilirubin, Urine Neg (Neg); Blood, Urine Neg (Neg); Color, Urine Yellow (P-Yellow); Glucose Qualitative, Urine Neg (Neg); Ketones, Urine Neg (Neg); Leukocyte Esterase, Urine Neg (Neg); Nitrite, Urine Neg (Neg); Protein, Urine Neg (Neg); Source, Urine Clean Catch; Specific Gravity, Urine 1.025 (1.003-1.022); Urobilinogen, Urine NORM (Normal)
[2024-09-21 21:42] VITALS: BP 115/67
== END 2024-09-21 21:42 | disposition home or self-care (01) ==
LOC: ER 14:40
PROVIDERS: Student in an Organized Health Care Education/Training Program
DX: T62.0X1A Toxic effect of ingested mushrooms, accidental (unintentional), initial encounter (principal); F17.210 Nicotine dependence, cigarettes, uncomplicated; J45.909 Unspecified asthma, uncomplicated; Z79.899 Other long term (current) drug therapy
CPT/HCPCS: 80053; 81003; 82550; 83605; 83690; 85025; 85610; 93005; 93010; 96361; 96374; 99284-25; J2405; J7030

== ENCOUNTER 2024-10-13 10:40 | Emergency (ER) | payer OTHER ==
[~2024-10-13] VITALS: Ht 188 cm; Wt 81.7 kg
[2024-10-13 11:07] VITALS: BP 132/100
[2024-10-13] MEDS ORDERED: SEROQUEL XR300 MG PO (11:17)
== END 2024-10-13 11:21 | disposition home or self-care (01) ==
LOC: ER 10:40
DX: Z76.0 Encounter for issue of repeat prescription (principal); E03.9 Hypothyroidism, unspecified; J45.909 Unspecified asthma, uncomplicated; F17.210 Nicotine dependence, cigarettes, uncomplicated; Z86.59 Personal history of other mental and behavioral disorders; Z79.899 Other long term (current) drug therapy
CPT/HCPCS: 99281

== ENCOUNTER 2024-11-03 12:10 | Emergency (ER) | payer OTHER ==
[~2024-11-03] VITALS: Ht 182.9 cm; Wt 70.8 kg
[~2024-11-03 12:10] MED LIST changes: +SEROQUEL XR300 MG PO
[2024-11-03 12:23] VITALS: BP 142/63
[2024-11-03] MEDS ORDERED: QUET300 PO (12:46)
== END 2024-11-03 13:07 | disposition home or self-care (01) ==
LOC: ER 12:10
DX: Z76.0 Encounter for issue of repeat prescription (principal); F17.210 Nicotine dependence, cigarettes, uncomplicated; J45.909 Unspecified asthma, uncomplicated; Z79.01 Long term (current) use of anticoagulants; Z79.899 Other long term (current) drug therapy; Z86.718 Personal history of other venous thrombosis and embolism; Z86.711 Personal history of pulmonary embolism
CPT/HCPCS: 99281

== ENCOUNTER 2025-03-04 23:15 | Observation (INO) | payer OTHER ==
[~2025-03-04] VITALS: Ht 182.9 cm; Wt 81.7 kg
[2025-03-05 00:34] LABS: BASOPHILS ABSOLUTE AUTO 0.08 K/mm3 (0.00-0.23); BASOPHILS PERCENT AUTO 0 % (0-2); EOSINOPHILS ABSOLUTE AUTO 0.01 K/mm3 (0.00-0.68); EOSINOPHILS PERCENT AUTO 0 % (0-6); Hematocrit 46.4 % (37.0-53.0); Hemoglobin 16.2 g/dL (13.5-17.5); IMMATURE GRAN ABSOLUTE AUTO 0.09 K/mm3 (0.00-0.10); IMMATURE GRAN PERCENT AUTO 0 % (0-1); LYMPHOCYTES ABSOLUTE AUTO 2.54 K/mm3 (0.84-5.20); LYMPHOCYTES PERCENT AUTO 13 % (21-46); MONOCYTES ABSOLUTE AUTO 1.75 K/mm3 (0.16-1.47); MONOCYTES PERCENT AUTO 9 % (4-13); Mean Corpuscular HGB 31.4 pg (26.0-34.0); Mean Corpuscular HGB Conc 34.9 g/dL (31.5-36.5); Mean Corpuscular Volume 90 fL (80-100); Mean Platelet Volume 9.8 fL (9.1-12.4); NEUTROPHILS ABSOLUTE AUTO 15.84 K/mm3 (1.96-9.15); NEUTROPHILS PERCENT AUTO 78 % (41-73); Platelet Count 426 K/mm3 (150-400); RDW Standard Deviation 39.6 fL (35.1-46.3); Red Blood Cell Count 5.16 M/mm3 (4.30-5.90); White Blood Cell Count 20.31 K/mm3 (4.00-11.30)
[2025-03-05 00:47] LABS: Ethanol (Alcohol), Blood, Med <3 mg/dL; Salicylate 2.8 mg/dL (2.8-20.0)
[2025-03-05] MEDS ORDERED: Diphth,Pertuss(Acell),Tet Vac 0.5 ML VIAL IM ONE (00:55)
[2025-03-05] MEDS ORDERED: Haloperidol Lactate Inj. 5 MG/ML Injection IV ONE (00:55)
[2025-03-05 01:02] LABS: Acetaminophen, Random <2.0 ug/mL (10.0-30.0); Alanine Aminotransfer (ALT/SGP 19 U/L (12-78); Albumin/Globulin Ratio 1.4 (0.8-1.8); Alk Phos 77 U/L (50-136); Anion Gap 18 mmol/L (3-11); Aspartate Aminotrans (AST/SGOT 32 U/L (12-37); Bilirubin, Total 1.3 mg/dL (0.1-1.0); Blood Urea Nitrogen 22 mg/dL (8-24); Bun/Creatinine Ratio 14.6 (12.0-20.0); CO2, Blood 16 mmol/L (21-32); Calcium, Blood 9.3 mg/dL (8.5-10.1); Chloride, Blood 106 mmol/L (98-108); Creatinine, Blood 1.51 mg/dL (0.60-1.20); Globulin, Blood 3.6 g/dL (2.2-4.0); Glomerular Filtration Rate 63 (60-); Glucose, Blood 104 mg/dL (70-99); Sodium, Blood 136 mmol/L (136-145); Total Protein, Blood 8.6 g/dL (6.4-8.2)
[2025-03-05] MEDS ORDERED: Haloperidol Lactate Inj. 5 MG/ML Injection IM ONE (01:05)
[2025-03-05 05:26] VITALS: BP 137/86
[2025-03-05] MEDS ORDERED: OLANZapine 10 MG Tab PO ONE (07:35)
== END 2025-03-05 13:39 | disposition other institution (70) ==
LOC: ER 23:15 → EOR 23:16
PROVIDERS: ADMIT Emergency Medicine
DX: T14.91XA Suicide attempt, initial encounter (principal); S61.512A Laceration without foreign body of left wrist, initial encounter; F12.929 Cannabis use, unspecified with intoxication, unspecified; J45.909 Unspecified asthma, uncomplicated; F20.9 Schizophrenia, unspecified; E03.9 Hypothyroidism, unspecified; F17.210 Nicotine dependence, cigarettes, uncomplicated; Z79.899 Other long term (current) drug therapy; X78.1XXA Intentional self-harm by knife, initial encounter
CPT/HCPCS: 12032; 80053; 80320; 85025; 90471; 90715; 96372-59; 99285-25; A9270; G0378; G0480; J1630

== ENCOUNTER 2025-03-05 11:19 | Inpatient (IN) | payer OTHER ==
[~2025-03-05] VITALS: Ht 182.9 cm; Wt 90.0 kg
[2025-03-05] MEDS ORDERED: LORazepam 2 MG/ML 1ML Injection IM PRN (15:05)
[2025-03-05] MEDS ORDERED: HydrOXYzine Pamoate 50 MG Cap PO PRN (15:05)
[2025-03-05] MEDS ORDERED: LORazepam 2 MG Tab PO PRN (15:05)
[2025-03-05] MEDS ORDERED: Ibuprofen 600 MG Tab PO PRN (15:05)
[2025-03-05] MEDS ORDERED: Acetaminophen 325 MG TABLET PO PRN (15:10)
[2025-03-05] MEDS ORDERED: Haloperidol Lactate Inj. 5 MG/ML Injection IM PRN (15:10)
[2025-03-05] MEDS ORDERED: Calcium Carbonate 500 MG Tab Chew PO PRN (15:10)
[2025-03-05] MEDS ORDERED: Haloperidol 5 MG Tab PO PRN (15:10)
[2025-03-05] MEDS ORDERED: DiphenhydrAMINE HCl 50 MG/ML 1ML Vial IM PRN (15:10)
[2025-03-05] MEDS ORDERED: Aluminum Hydroxide 320MG/5ML 473 ML PO PRN (15:10)
[2025-03-05] MEDS ORDERED: DiphenhydrAMINE HCl 50 MG Cap PO PRN (15:10)
[2025-03-05] MEDS ORDERED: Melatonin 3 MG Tab PO PRN (15:15)
[2025-03-05] MEDS ORDERED: Ondansetron 4 MG SoluTab MM PRN (15:15)
[2025-03-05] MEDS ORDERED: Polyethylene Glycol 3350 17 gm PO PRN (15:15)
[2025-03-05] MEDS ORDERED: OLANZapine ODT 10 MG Tab MM PRN (15:15)
[2025-03-05] MEDS ORDERED: TraZODone HCl 50 MG Tab PO PRN (15:15)
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
[2025-03-05 16:46] VITALS: BP 137/47
[2025-03-05] MEDS ORDERED: Nicotine Polacrilex 2 MG Gum PO PRN (17:25)
[2025-03-05 20:13] VITALS: BP 131/81
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
[2025-03-06 06:18] LABS: CHOL/HDL RATIO 3.3; Cholesterol 161 mg/dL (50-200); HDL Cholesterol 49 mg/dL (>39); LDL/HDL RATIO 2.1; Low Density Lipoprotein Chol 101 mg/dL (0-110); Triglycerides 55 mg/dL (30-140); Very Low Density Lipoprot Chol 11 mg/dL (6-28)
[2025-03-06 08:08] VITALS: BP 132/76
[2025-03-06] MEDS ORDERED: Multivitamins 1 Tab PO SCH (09:00)
--- NOTE | 2025-03-06 16:54 | NUR ---
SHIFT SUMMARY: PT A/O X3. DENIES TO BE SI,HI,AND AVH. PT IS COOPERATIVE AND MORE RELAXED TODAY. WAS ANXIOUS TODAY AND GIVEN ZYPREXA 10 MG. IT WAS EFFECTIVE. PT HAD A CALM DAY. HE WOULD WALK THE HALLS. ATE ALL MEALS AND COMPLIED WITH MEDICATIONS. PT CRIED WITH SMALL EPISODES OF WANTING TO BE WITH HIS BROTHER WHO HAS . ASKED HOW OLD HE WAS, PT STATED "I WON'T TALK ABOUT IT" HE REACTED THIS WAY ON INTAKE FOR ADMISSION YESTERDAY.PT HAS 3 SUTURES ON INNER LEFT WRIST. CLEANSED WOUND AND APPLIED BANDAID. AREA IS NOT RED OR DRAINANG AT THIS TIME AND PT CAN MOVE ALL FINGERS FREELY. ENCOURAGED PT TO JOIN OTHERS WHEN AWAKE.
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
[2025-03-06 20:15] VITALS: BP 134/78
[2025-03-06] MEDS ORDERED: Benztropine Mesylate 1 MG Tab PO SCH (21:00)
[2025-03-06] MEDS ORDERED: QUEtiapine Fumarate 300 MG Tab PO SCH ×2 (21:00)
[2025-03-06] MEDS ORDERED: Apixaban 5 MG Tab PO SCH (21:00)
--- NOTE | 2025-03-07 04:19 | NUR ---
SHIFT SUMMARY PATIENT UP IN DELUNA TEARFUL DURING ASSESSMENT TALKING ABOUT HIS BROTHER VERBALIZING "LIFE IS MESSED UP" AND "WANTING TO GET BETTER". CONTINUES TO HAVE SI THOUGHTS, BUT NO PLAN. DENIES HI, OR AVH. AFTER SNACK AND SHOWER, LACERATION TO LEFT WRIST CLEANSED AND REDRESSED WITH BANDAID. LACERATION HAS 3 SUTURES CD&I WITH NO REDNESS OR SWELLING. AT 2100 PATIENT YELLING OUT AND CRYING. DIFFICULT TO CALM PATIENT. CONVERSATION CONTINUOUSLY GOING BACK TO HIS BROTHER AND EXPRESSING ANGER AND SADNESS. MASS 19, MEDICATED WITH BENADRYL, ATIVAN, AND HALDOL PO. WITH GOOD EFFECT. 2310 PATIENT AWAKE VERBALIZED FEELING BETTER AND WAS ABLE TO READ A BOOK, 2ND SNACK GIVEN. REMAINING CALM THE REST OF THE NIGHT, SLEEPING FROM 1766-1630. NOW AWAKE, BUT RESTING IN HIS ROOM AWAITING BREAKFAST.CONTINUE TO MONITOR Q15MIN
[2025-03-07] MEDS ORDERED: Levothyroxine Sodium 0.05 MG Tab PO SCH (06:00)
[2025-03-07 07:51] VITALS: BP 124/93
[2025-03-07] MEDS ORDERED: Sertraline HCl 50 MG Tab PO SCH (09:00)
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
[2025-03-07 20:21] VITALS: BP 138/91
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
--- NOTE | 2025-03-08 05:51 | NUR ---
SHIFT SUMMARY NO ACUTE EVENTS SINCE LAST NOTE (READ PREVIOUS NOTE FOR PT'S EPISODE). AWAKE 3 TIMES SINCE PREVIOUS NOTE ASKING ABOUT BREAKFAST, WAS TOLD THE TIME, AND PT WENT BACK TO BED.
[2025-03-08 07:56] VITALS: BP 134/78
--- NOTE | 2025-03-08 17:19 | NUR ---
SHIFT SUMMARY PT AxOx4. PLEASANT AND COOPERATIVE WITH CARE. PT REPORTED HIS MOOD "OKAY" THIS AM AND DENIES SI/HI AND AVTH. PT HAS BEEN FOLLOWING HIS TREAMENT PLAN THIS SHIFT INCLUDING TAKING MEDICATIONS PRESCRIBED, ATTENDING MILIEU GROUP THERAPIES AND MINGLING APPROPRIATELY WITH PEERS/STAFF. PT EXPRESSED SOME FRUSTRATION LATER IN THE DAY IN THE FORM OF ELEVATED VOICE, CURSING AND RANTING ABOUT HIS FAMILY AFTER BEING TRIGGERED DURING A PHONE CALL WITH HIS MOTHER. PT WAS ABLE TO DE-ESCALATE AFTER SPENDING SOME TIME WITH THE CHARGE NURSE. DURING THAT CONVERSATION, THE PATIENT ENDORSED FEELING SUICIDAL AND NO LONGER FELT LIKE HE WAS READY TO DISCHARGE SOON. PROVIDER NOTIFIED AND PLAN WAS UPDATED FOR THE PATIENT TO STAY UNTIL APPROX FRIDAY (03/11). PT AGREEABLE TO THIS PLAN. PT IS CURRENTLY SITTING IN DINING ROOM CALMLY EATING DINNER WITH PEERS. DENIED ANY NEEDS.
[2025-03-08 20:00] VITALS: BP 123/64
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
--- NOTE | 2025-03-09 15:45 | NUR ---
Patient denies having suicidal thoughts or any desire to be . He participates in group, but needs direction frequently to attend. Patient is concerned over discharge and reports he does not want to go to his moms. Patient takes medication, is polite to staff on the unit and interacts with peers.
--- NOTE | 2025-03-09 15:51 | NUR ---
Patient has a post discharge appt. with Josiane Simms for Mental heatlh on 03/15.
[2025-03-09 20:13] VITALS: BP 138/84
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
--- NOTE | 2025-03-09 22:04 | NUR ---
FOLLOW UP TO EMERGENCY MEDICATIONS: PATIENT ABLE TO CALM ENOUGH TO TALK TO MALE MHA REGARDING WHAT HE LIKES TO DO. HE WANTED TO WATCH A MUSIC VIDEO AND WATCHED IT IN THE DAY ROOM WITH OTHER STAFF AND PEERS. HE THEN PACED WHILE TALKING WITH MALE MHA, AND STATED THAT HE DID NOT NEED A SECOND ZYPREXA AT THIS TIME, HE FEELS "BETTER, I CAN CONTROL IT RIGHT NOW". HIS MASS SCORE AT THE TIME OF THE BENADRYL, ATIVAN AND HALDOL WAS 10/10, EVIDENCED BY MAKING FISTS, YELLING AND CURSING AND THREATENING TWO FEMALE STAFF MEMBERS. HE HAS APOLOGIZED AND CONTRACTED FOR SAFETY AT THIS TIME.
--- NOTE | 2025-03-10 04:23 | NUR ---
SHIFT SUMMARY: PLEASE SEE FORMER NOTES FOR THIS SHIFT. PATIENT HAD NO MORE MASS SCORE INCREASES THIS SHIFT. HE DID GET UP A FEW TIMES AND WAS AWAKE A FEW TIMES, BUT HE WAS APPROPRIATE AT THOSE TIMES. HE WILL HAVE SUPERINTENDENT DRILLING AND PRODUCTION MEDICATIONS AT 0600. CONTINUING TO MONITOR FOR SAFETY WITH Q15 MINUTE CHECKS.
--- NOTE | 2025-03-10 09:05 | NUR ---
IMPORTANT MEDICATION MANAGEMENT APPOINTMENT INFORMATION Patient is scheduled to meet with SHERMAN Gray on Saturday, March 15, 2025 at 1330 // [address], [place] [address] // [phone] SOLOMON entered appointment information into patient's discharge packet
--- NOTE | 2025-03-10 16:27 | NUR ---
"Spiritual Care Visit | Pt. Request Met with Pt. in a [facility] consult room. Pt. is generally pleasant. Pt. verbalized some of his story. Listened with empathy and interest. The more life story was shared the Pt. displayed evidence of disconnected thoughts. Continue to listen and facilitate story telling with a calming presence. Pt. verbalized whether this fire management officer or the hospital had a process that could get him into the job corps. This fire management officer provided no direct resource, but sought to normalize the Pt. experience. The Pt. let this fire management officer know when he wanted to go. Prayed with the Pt. Pt. verbalized gratitude for the spiritual care visit."
--- NOTE | 2025-03-10 17:31 | NUR ---
"Spiritual Care Consult | Ordered by Cedric Workman D.O. Met Pt. in the hallway when I had another Pt. visit planned. Returned to the [facility] when Consult was ordered. Met with Pt. in a consult room. Facilitated a life review. Pt. verbalized freely some of the brokenness and guilt in his life. SInce Pt. verbalized his concerns about what God thinks of him. Matters of bibiana and belief are considered. Scripture is shared and stories are told. Prayed with the Pt. Pt. displayed evidence of a renewed confidence and verbalized gratitude for the spiritual care visit."
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
[2025-03-10 20:33] VITALS: BP 146/88
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
[2025-03-11 08:07] VITALS: BP 144/84
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
[2025-03-11 19:16] VITALS: BP 133/90
--- NOTE | 2025-03-12 05:13 | NUR ---
SHIFT SUMMARY NO ACUTE EVENTS THIS EVENING, PT SLEPT/RESTED QUIETLY T/O MOST OF NIGHT. PT DID NOT HAVE CRYING OUTBURST/AGITATION THAT HAS BEEN REPORTED BY PREVIOUS RN AND LAST TIME THIS RN HAD PT. DENIED SI, HI, AVTH. SUTURE SITE OPEN TO AIR W/ NO REDNESS NOTED (PINK EDGES). SUTURES STILL IN PLACE.
[2025-03-12 07:57] VITALS: BP 135/82
--- NOTE | 2025-03-12 16:51 | NUR ---
SHIFT SUMMARY: PT ALERT, ORIENTED AND COOPERATIVE WITH CARE. DENIES SI, HI AND AVH. COMPLIANT WITH MEDICATIONS. PT ENGAGED IN UNIT MILIEU. SPENT TIME IN THE DAY ROOM, WALKING THE HALLS AND RESTING IN HIS ROOM. PT ATTENDED MEALS AND ATE 100% OF MEALS.
[2025-03-12 19:52] VITALS: BP 136/74
--- NOTE | 2025-03-12 20:54 | NUR ---
UPDATE PT GIVEN ANOTHER B52 THIS EVENING D/T AGITATION MASS >9. EVENT: PT CRYING IN ROOM AUDIBLY FROM NURSE'S DESK. WHEN ASKING PT WHAT'S TROUBLING HIM, PT TALKED ABOUT OPERATIONS SECTION MANAGER KILLING HIS BROTHER AND BREAKING THE PT'S ANKLES AND COLLAR BONES. ALSO TALKING ABOUT HOW THE OPERATIONS SECTION MANAGER WERE SATANISTS AND WITCHES, W/ REPETATIVE SPEECH/DISORDERED THINKING. PT BECAME MORE AGITATED SO B52 WAS ADMINISTERED. PT STILL IN DISTRESS, BUT HAS CALMED DOWN AND IS TALKING W/ AKANKSHA MHA. PT ALSO EXPRESSED DESIRE TO KILL THE TECHNICAL RESEARCH SCIENTIST WHO KILLED HIS BROTHER.
--- NOTE | 2025-03-13 05:28 | NUR ---
SHIFT SUMMARY NO ACUTE EVENTS SINCE PREVIOUS NOTE. PT SLEPT/RESTED QUIETLY T/O MOST OF NIGHT. UP TO NURSES DESK TWICE, ONCE TO ASK FOR FOOD, AND ANOTHER TO ASK FOR GUM SINCE PREVIOUS NOTE. SEE PREVIOUS NOTE FOR EVENT THIS SHIFT.
[2025-03-13 08:02] VITALS: BP 121/83
--- NOTE | 2025-03-13 16:44 | NUR ---
SHIFT SUMMARY: PT ALERT, ORIENTED AND COOPERATIVE WITH CARE. HE DENIED SI, HI AND AVH THIS AM. HE SPENT TIME IN HIS ROOM RESTING ON HIS BED AND WALKING IN THE HALLS. PT ATTENDED MEALS AND WAS ENGAGED IN UNIT MILIEU. PT REQUESTED TO USE THE PHONE TO CALL HIS MOM IN THE EVENING. WHEN SHE DIDN'T ANSWER THE PT BECAME AGGITATED AND RAISING HIS VOICE. UPSET THAT SHE DIDN'T ANSWER. STATED THAT SHE IS TRYING TO CONTROL HIS LIFE AND EVERYTHING HE DOES. PT REQUESTED ZYPREXA AND WAS MEDICATED PER EMAR. STATED, "I'M FEELING HOMMICIDAL BUT I'M NOT HOMICAL, I JUST DON'T LIKE IT WHEN SHE TRIES TO CONTROL ME". PT CALMED TALKED WITH THIS RN WHILE WALKING UP AND DOWN THE HALLWAY. PT STATED THAT HE IS FEELING BETTER, APPEARS TO HAVE CALMED.
--- NOTE | 2025-03-14 05:05 | NUR ---
SHIFT SUMMARY NO ACUTE EVENTS OVERNIGHT. PT SLEPT/RESTED T/O NIGHT SINCE SNACKTIME. PT DENIES SI, HI, AVTH. STATES HE FEELS DEPRESSED AND WORRIED ABOUT "WHAT'S GOING TO HAPPEN AFTER", REASSURED PT THAT KAREN WILL WORK W/ HIM AND TO FOCUS ON HIS HEALING/MENTAL HEALTH AT THIS POINT. PT DID NOT HAVE ANY OUTBURSTS HE DID THE PREVIOUS NIGHT FOR THIS RN.
--- NOTE | 2025-03-14 05:17 | NUR ---
WOUND WRIST OPEN TO AIR W/ [address], PINK EDGES/SCARRING.
[2025-03-14 08:04] VITALS: BP 129/89
--- NOTE | 2025-03-14 11:36 | NUR ---
PT HAVING VERBAL OUTBURST REGARDING BROTHER. PT ENCOURAGED TO UTILIZE SENSORY ROOM AND PRACTICE COPING SKILLS. PT IN SENSORY ROOM AT THIS TIME.
--- NOTE | 2025-03-14 12:56 | NUR ---
DISCHARGE NOTE SPOKE WITH PT'S MOTHER THIS MORNING, MAYRA CARMICHAEL, SHE IS VERY CONCERNED ABOUT PT BEING D/C, SHE STS SHE WANTS TO BE PART OF HIS D/C PLAN. SHE STS HE MANIPULATES HER AND SHE DOESN'T KNOW HOW TO HANDLE HIM OR HIS THREATS OF SELF HARM.
--- NOTE | 2025-03-14 16:42 | NUR ---
SHIFT SUMMARY PT A/O X4; DENIES SI, HI, AND HALLUCINATIONS. PT EMOTIONALLY LABILE AT TIMES AND SEEMS TO BE HAVING ISSUES WITH HAVING A ROOM MATE. PT REPORTED INCREASED ANXIETY/AGITATION A FEW TIMES THIS SHIFT. MEDICATED PER EMR X1 THIS SHIFT AND ALSO ENCOURAGED TO USE COPING SKILLS AND SENSORY ROOM WHEN NEEDED. PT TO POTENTIALLY DC TOMORROW. HE WILL BE PICKED UP AND TAKEN TO [facility] AND HE HAS A MEDICATION MANAGEMENT APPOINTMENT SET UP.
[2025-03-14 20:25] VITALS: BP 128/83
--- NOTE | 2025-03-14 22:44 | NUR ---
PT HAD EPISODE OF ELEVATED BEHAVIORS REGARDING "I FEEL LIKE I BROUGHT EVIL SPIRITS ON MYSELF" "I READ THAT BOOK OF ORTHODOX AND NOW THE EVIL MORMONS ARE GOING TO KILL MY DAD." PT CONTINUES TO STATE HE FEARS THAT HE BROUGHT EVIL SPIRITS ON HIMSELF THROUGHTOUT CONVERSATION. LOUD VOICE, ELEVATED EMOTIONS. CONCERNED THAT HIS DAD IS NOT OK - INSISTING ON CALLING FATHER TO CHECK ON HIM. FEARS HIS FATHER IS . ATTEMPTING DE-ESCALATION TECHNIQUES ATTEMPTED THROUGH VERBAL INTERVENTION. UNSUCCESSFUL. ORAL B 52 ADMINISTERED WHICH PATIENT ACCEPTED.
--- NOTE | 2025-03-15 04:34 | NUR ---
SHIFT SUMMARY: PT HAD A SOMEWHAT RESTLESS OVERNIGHT. CAME TO NURSE'S STATION A FEW TIMES THROUGHOUT NIGHT RELATED TO NOT BEING ABLE TO SLEEP. ROUNDING REVEALED PATIENT AWAKE IN BED MULTIPLE TIMES THROUGH NIGHT. HAS REMAINED CALM SINCE MEDICATION GIVEN EARLIER. PT DID EXPRESS ANXIETY RELATED TO BEING DISCHARGED TODAY OR TOMORROW. CONTINUE 15 MIN CHECKS FOR SAFETY.
[2025-03-15 08:10] VITALS: BP 131/75
--- NOTE | 2025-03-15 10:54 | NUR ---
IMPORTANT DISCHRGE INFORMATION PATIENT DISCHARGING TO [facility]IA [facility]. THEY WILL PICK POLO UP AROUND 1PM. FOLLOW UP APPOINTMENT WITH: RHEA CLAY ON 03/16/25 AT 12:45PM AT [facility] [address] [place] [address]. [facility] WILL PROVIDE POLO WITH OUTSIDE GEAR HE IS NOT ALLOWED BACK AT THE [facility]. PLEASE LET POLO KNOW TO GO TO THE 3RD FLOOR FOR EQUIPMENT. RESOURCES GIVEN FOR CALLING [employer] AND LOOKING INTO RECONECTING SERVICES.
[2025-03-15] MEDS ORDERED: QUET300 PO (12:13)
[2025-03-15] MEDS ORDERED: HYDPAM50 PO (12:14)
[2025-03-15] MEDS ORDERED: MELA3 PO (12:15)
[2025-03-15] MEDS ORDERED: MULVITA PO (12:15)
[2025-03-15] MEDS ORDERED: NICO2 PO (12:16)
[2025-03-15] MEDS ORDERED: TRAZ50 PO (12:16)
--- NOTE | 2025-03-15 12:57 | NUR ---
IMPORTANT DISCHARGE INFORMATION PHARMACY: [facility] ([facility]) RN PROVIDED FREE GRIEF SUPPORT CLASSES AND GROUP THERAPY.
--- NOTE | 2025-03-15 13:07 | NUR ---
DISCHARGE PT DENIES SI, HI, BUT ENDORSES SOME PARANOIA. PT DECLINED TO PARTICIPATE IN GROUP THIS SHIFT. PT ENDORSES A LOT OF ANXIETY RELATED TO DISCHARGE. PT TEARFUL AND BECAME MORE DISTRAUGHT WHEN HE CALLED HIS MOTHER AND SHE DID NOT ANSWER. DISCHARGE INSTRUCTIONS GONE OVER WITH PT AND HE EXHIBITED MINIMAL UNDERSTANDING. PT PICKED UP BY [facility] PEER SUPPORT AND PT INSTRUCTED TO GET SUPPLIES FROM THIRD FLOOR AND MEDICATIONS FROM [facility]. SUTURES REMOVED PRIOR TO DISCHARGE. SKIN AROUUND WOUND PINK, DRY, AND OPEN TO AIR. BELONGINGS RETURNED TO PATIENT AND DONATED CLOTHES GIVEN TO PT WELL. PT LEFT AT 1310.
== END 2025-03-15 13:10 | disposition home or self-care (01) | DRG 885 ==
LOC: BHU 11:19
PROVIDERS: ADMIT Psychiatry & Neurology Psychiatry
PROC: GZHZZZZ Group Psychotherapy (ICD-10-PCS; principal; 2025-03-06)
DX: F20.9 Schizophrenia, unspecified (principal); F15.20 Other stimulant dependence, uncomplicated; R45.851 Suicidal ideations; Z59.00 Homelessness unspecified; S61.512A Laceration without foreign body of left wrist, initial encounter; J45.909 Unspecified asthma, uncomplicated; E03.9 Hypothyroidism, unspecified; F31.9 Bipolar disorder, unspecified; Z86.718 Personal history of other venous thrombosis and embolism; Z86.711 Personal history of pulmonary embolism; Z79.899 Other long term (current) drug therapy
CPT/HCPCS: 36415; 80061; 83036; A9270

== ENCOUNTER 2025-03-17 15:44 | Observation (INO) | payer OTHER ==
[~2025-03-17] VITALS: Ht 180.3 cm; Wt 68.0 kg
[~2025-03-17 15:44] MED LIST changes: +HYDPAM50 PO; +MELA3 PO; +MULVITA PO; +NICO2 PO; +TRAZ50 PO
[2025-03-17 17:07] LABS: Source, Urine Clean Catch
[2025-03-17 17:09] LABS: Bilirubin, Urine Neg (Neg); Blood, Urine Neg (Neg); Color, Urine Amber (P-Yellow); Glucose Qualitative, Urine Neg (Neg); Ketones, Urine 4+ (Neg); Leukocyte Esterase, Urine Neg (Neg); Nitrite, Urine Neg (Neg); Protein, Urine 2+ (Neg); Specific Gravity, Urine 1.025 (1.003-1.022); Urobilinogen, Urine NORM (Normal)
[2025-03-17] MEDS ORDERED: OLANZapine 10 MG Tab PO ONE (17:55)
[2025-03-17 18:12] LABS: Appearance, Urine Hazy (Clear); Bacteria Many /hpf; Red Blood Cells, Urine 0-2 /hpf (0-2); Squamous Epithelial Cells Rare /hpf (Few); White Blood Cells, Urine 0-2 /hpf (0-5)
[2025-03-17 18:13] LABS: Amorphous Light (0-Heavy); Mucus Heavy (0-Heavy)
[2025-03-17 18:25] LABS: BASOPHILS ABSOLUTE AUTO 0.06 K/mm3 (0.00-0.23); BASOPHILS PERCENT AUTO 0 % (0-2); EOSINOPHILS PERCENT AUTO 1 % (0-6); Hematocrit 42.7 % (37.0-53.0); Hemoglobin 14.5 g/dL (13.5-17.5); IMMATURE GRAN ABSOLUTE AUTO 0.07 K/mm3 (0.00-0.10); IMMATURE GRAN PERCENT AUTO 1 % (0-1); LYMPHOCYTES PERCENT AUTO 16 % (21-46); MONOCYTES ABSOLUTE AUTO 1.15 K/mm3 (0.16-1.47); MONOCYTES PERCENT AUTO 8 % (4-13); Mean Corpuscular Volume 91 fL (80-100); Mean Platelet Volume 9.6 fL (9.1-12.4); NEUTROPHILS ABSOLUTE AUTO 11.33 K/mm3 (1.96-9.15); NEUTROPHILS PERCENT AUTO 74 % (41-73); Platelet Count 346 K/mm3 (150-400); RDW Standard Deviation 40.1 fL (35.1-46.3); Red Blood Cell Count 4.67 M/mm3 (4.30-5.90); White Blood Cell Count 15.21 K/mm3 (4.00-11.30)
[2025-03-17 18:49] LABS: Ethanol (Alcohol), Blood, Med <3 mg/dL; Salicylate <1.7 mg/dL (2.8-20.0)
[2025-03-17 18:55] LABS: Alanine Aminotransfer (ALT/SGP 69 U/L (12-78); Albumin, Blood 4.4 g/dL (3.4-5.0); Albumin/Globulin Ratio 1.3 (0.8-1.8); Alk Phos 80 U/L (50-136); Anion Gap 16 mmol/L (3-11); Aspartate Aminotrans (AST/SGOT 208 U/L (12-37); Bilirubin, Total 1.2 mg/dL (0.1-1.0); Blood Urea Nitrogen 20 mg/dL (8-24); Bun/Creatinine Ratio 20.9 (12.0-20.0); CO2, Blood 19 mmol/L (21-32); Calcium, Blood 9.1 mg/dL (8.5-10.1); Chloride, Blood 103 mmol/L (98-108); Creatinine, Blood 0.96 mg/dL (0.60-1.20); Globulin, Blood 3.5 g/dL (2.2-4.0); Glomerular Filtration Rate 108 (60-); Glucose, Blood 78 mg/dL (70-99); Potassium, Blood 3.3 mmol/L (3.5-5.5); Sodium, Blood 135 mmol/L (136-145); Total Protein, Blood 7.9 g/dL (6.4-8.2)
[2025-03-17 18:56] LABS: Acetaminophen, Random <2.0 ug/mL (10.0-30.0)
[2025-03-17] MEDS ORDERED: Doxycycline Hyclate 100 MG TAB PO ONE (19:05)
[2025-03-17 19:37] LABS: U Amphetamine Screen DETECTED; U Barbituate Screen Not Detected; U Benzodiazapine Screen DETECTED; U Buprenorphine Screen Not Detected; U Cannabinoids Screen DETECTED; U Cocaine Screen Not Detected; U Methadone Screen Not Detected; U Methamphetamine Screen DETECTED; U Opiates Screen Not Detected; U Oxycodone Screen Not Detected; U Phencyclidine Screen Not Detected
[2025-03-18] MEDS ORDERED: Doxycycline Hyclate 100 MG TAB PO SCH (09:00)
--- NOTE | 2025-03-18 10:34 | NUR ---
"Spiritual Care | Pt. Request Pt. 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 Facilitated an update regarding the Pts. relatively short term re-admittance. Pt. is pleasant. With theraputic listening and a calming presence the Pt. displayed evidence of being encouraged. Pt. requested a bible. Prayed with Pt. Pt. verbalized gratitude for he spiritual care visit and welcomed this physical scientist to return. Provided Pts. 1:1 sitter with a bible for the Pt."
[2025-03-18] MEDS ORDERED: QUEtiapine Fumarate 100 MG Tab PO ONE (12:00)
[2025-03-18 13:07] VITALS: BP 131/77
[2025-03-18] MEDS ORDERED: Acetaminophen 500 MG Tab PO PRN (14:35)
[2025-03-18] MEDS ORDERED: QUEtiapine Fumarate 300 MG Tab PO SCH (21:00)
[2025-03-25] MEDS ORDERED: PROP10 PO (11:31)
[2025-03-25] MEDS ORDERED: RISP3 PO (11:32)
[2025-03-25] MEDS ORDERED: SULFAMETHOXAZO1 EAC1 PO (11:32)
[2025-03-25] MEDS ORDERED: LACT PO (11:33)
== END 2025-03-18 19:30 | disposition other institution (70) ==
LOC: ER 15:44 → EOR 15:45
PROVIDERS: Student in an Organized Health Care Education/Training Program; ADMIT Student in an Organized Health Care Education/Training Program
DX: F20.0 Paranoid schizophrenia (principal); F15.10 Other stimulant abuse, uncomplicated; S51.812A Laceration without foreign body of left forearm, initial encounter; E03.9 Hypothyroidism, unspecified; F17.210 Nicotine dependence, cigarettes, uncomplicated; F12.99 Cannabis use, unspecified with unspecified cannabis-induced disorder; Z79.899 Other long term (current) drug therapy; Z88.8 Allergy status to other drugs, medicaments and biological substances; X78.1XXA Intentional self-harm by knife, initial encounter
CPT/HCPCS: 80053; 80320; 81001; 85025; 87086; 99285; A9270; G0378; G0480